=== PATIENT | male | born 1955 | race Caucasian/White ===

== ENCOUNTER 2020-02-15 04:47 | Inpatient (IN) | payer BC ==
[2020-02-08 11:41] LABS: HEMATOCRIT 43.4 % (42.0-52.0); MCH 31.5 pg (26.0-34.0); MCHC 32.2 g/dL (28.0-37.0); MCV 97.6 fL (80.0-100.0); RBC 4.45 mil/uL (4.50-6.00); RDW 15.4 % (10.5-14.5); WBC 11.4 thou/uL (4.0-11.0)
[2020-02-08 11:48] LABS: URINE BILIRUBIN NEGATIVE (Negative); URINE BLOOD 1+ (Negative); URINE CLARITY CLEAR; URINE COLOR YELLOW; URINE GLUCOSE-RANDOM* NEGATIVE (Negative); URINE KETONES NEGATIVE (Negative); URINE LEUKOCYTES-REFLEX NEGATIVE (Negative); URINE NITRITE-REFLEX NEGATIVE (Negative); URINE PROTEIN (DIPSTICK) 2+ (Negative); URINE SPECIFIC GRAVITY 1.015 (1.005-1.035); URINE UROBILINOGEN 0.2 E.U./dl (0.2-1.0)
[2020-02-08 11:54] LABS: PROTIME 10.2 Seconds (9.3-11.4)
[2020-02-08 11:56] LABS: ALBUMIN 3.7 g/dL (3.4-5.0); CALCIUM 9.3 mg/dL (8.5-10.1); CREATININE 5.4 mg/dL (0.7-1.3); POTASSIUM 4.9 mmol/L (3.5-5.1); TOTAL BILIRUBIN 0.3 mg/dL (0.2-1.0); TOTAL PROTEIN 7.4 g/dL (6.4-8.2)
[2020-02-08 12:09] LABS: SQUAMOUS 0-3 Few /LPF (0-3)
[2020-02-08 12:10] LABS: BACTERIA-REFLEX 1-9 Few /HPF (None Seen); CASTS None Seen /LPF (None Seen); CRYSTALS None Seen /LPF (None Seen); URINE RBC None Seen /HPF (0-2); URINE WBC-REFLEX None Seen /HPF (0-5)
[~2020-02-15] VITALS: Ht 175.3 cm; Wt 131.1 kg
--- NOTE | ~2020-02-15 | HC ---
[facility] [place] [address] CONSULTATION Name: DAWN URENA Room #: 446-P ADM IN M.R.#: [id number] Admission: 02/15/20 Attend Phys: Sawyer Mejia MD Discharge: Date of : 55 Report #: [id number] THIS REPORT FOR: cc: [facility] - Family physician unknown ALFON[place] - Family physician unknown Cullen Badillo MD ~ CC: Sawyer HAMILTON unknown Nicolasa Espinoza REASON FOR CONSULTATION: End-stage renal disease. REASON FOR PRESENTATION: Post-hip prosthesis. HISTORY OF PRESENT ILLNESS: A 64-year-old with past medical history of hypertension and hyperlipidemia, who was admitted for degenerative joint disease of the left hip and had a left total hip replacement. I was consulted to manage his end-stage renal disease. The patient had been maintained on peritoneal dialysis. He does not really know the underlying cause for his end-stage renal disease. 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 The patient had his surgery done successfully yesterday and I was consulted to manage his peritoneal dialysis related issues. He feels okay during his visit with me today. PAST MEDICAL HISTORY: 1. Hypertension. 2. Hyperlipidemia. 3. Degenerative joint disease of his left hip. 4. Hyperparathyroidism. 5. Anemia. MEDICATIONS: 1. ____. 2. Lisinopril. 3. Sensipar. 4. Atorvastatin. FAMILY HISTORY: Hypertension. ALLERGIES: None. SOCIAL HISTORY: He denies drug or alcohol abuse. He is retired. REVIEW OF SYSTEMS: GENERAL: No fever or chills. CARDIOVASCULAR: No chest pain or palpitation. PULMONARY: No cough or hemoptysis. GASTROINTESTINAL: No nausea or vomiting. [facility] [address] [place] [address] CONSULTATION Name: DAWN URENA Room #: 446-P ADM IN M.R.#: [id number] Admission: 02/15/20 Attend Phys: Sawyer Mejia MD Discharge: Date of : 55 Report #: [id number] GENITOURINARY: He still makes some urine. No frequency, no urgency. MUSCULOSKELETAL: As per the history of present illness. PHYSICAL EXAMINATION: GENERAL: He is alert, oriented, in no apparent distress. VITAL SIGNS: Blood pressure is 114/64. He is afebrile with a temperature of 36.8. Pulse rate is 83. HEAD AND NECK: No jugular venous distention, no bruit, no thyromegaly. CHEST: Clear to auscultation bilaterally. CARDIOVASCULAR: Regular with no rub detected. ABDOMEN: Soft, nontender, with intact PD catheter. LOWER EXTREMITIES: No edema. LABORATORY VALUES: Revealed white blood cell count of 14.8, hemoglobin 12.4. Chemistry from today revealed sodium of 136, potassium of 5.1, BUN 63, creatinine of 5.1. ASSESSMENT, IMPRESSION AND PLAN: 1. End-stage renal disease. 2. Status post left hip prosthesis. 3. Hypertension. 4. We will continue with the usual peritoneal dialysis regimen for the patient. Orders are entered. 5. Resume his end-stage renal disease related medications including his binders. 6. Continue with the current orthopedic, physical therapy care. By: [id number] Cullen Badillo MD /nt
[~2020-02-15 04:47] MED LIST: AURYXIA PO; LIPITOR10 MG PO; METOLAZONE 5 MG5 MG PO; NEPHRO-VITE RX1 TA1 PO; SENSIPAR 30 MG30 M1 PO; VITAMIN D31250 MCG PO; ZESTRIL40 MG PO
[2020-02-15 07:12] VITALS: BP 146/72
--- NOTE | 2020-02-15 07:56 | EKG ---
[facility] [place] [address] ELECTROCARDIOGRAM REPORT Name: DAWN URENA Room #: 150 ADM IN M.R.#: [id number] Admission: 02/15/20 Attend Phys: Sawyer Mejia MD Discharge: Date of : 55 Report #: [id number] THIS REPORT FOR: cc: FAM - Family physician unknown FAM - Family physician unknown Willie Obrien MD [facility] ~ THIS REPORT FOR: //name// [facility] Test Date: 2020-02-15 Test Time: 07:12:13 Pat Name: DAWN URENA Department: Room: 150 4 Gender: M Senior Financial Reporting Analyst: Joao WARREN : 1955 Requested By: Nicolasa Espinoza Order Number: [id number] MD: Willie Obrien Measurements Intervals [place] Rate: 79 P: 10 AR: 174 QRS: -12 QRSD: 89 T: 23 QT: 373 QTc: 428 Interpretive Statements Sinus rhythm No significant abnormality No previous ECG available for comparison Electronically Signed On 02-15-2020 7:55:57 CDT by Willie Obrien [email or web address] <ELECTRONICALLY SIGNED> By: Willie Obrien MD, FAC 02/15/20 0755 1 1 Willie Obrien MD, [facility] /EPI
[2020-02-15 11:00] VITALS: BP 102/53
[2020-02-15 11:30] VITALS: BP 107/55
--- NOTE | 2020-02-15 12:51 | NUR ---
PATIENT ADMITTED FROM OR WITH LFT HIP REPLACEMENT, CHELLY DRESSING, KNEE HIGH DUSTIN HOSE, SCD'S, ICE PACK TO LEFT HIP AREA. PATIENT ALERT AND ORIENTED X 4. PATIENT C/O PAIN 2/10 TO LEFT HIP AREA. ADMISSION DONE AND COMPLETED. PATIENT HAS LEFT HAND IV 1/2 NS AT 100CC/HR. PATIENT ARRIVED ON THE FLOOR AT 1100, WILL REPORT OFF TO CAITLIN/DONY.
[2020-02-15 15:00] VITALS: BP 133/85
--- NOTE | 2020-02-15 16:23 | NUR ---
ASSUMED CARE OF THE PT AT 0700. PT WORKED WITH PT TODAY AND WALKED TO THE HALLS. PAIN CONTROLLED BY PAIN MEDS, SEE EMAR. WILL TITRATE PT OFF NC. ICE PACK, CHELLY DRESSING, HEMOVAC, DUSTIN HOSE AND SCD'S IN PLACE. FALL PRECAUTIONS IN PLACE, BED IN THE LOWEST POSITION AND CALL LIGHT IS WITHIN REACH. WILL CONTINUE TO MONITOR THE PT.
--- NOTE | 2020-02-15 16:25 | NUR ---
PT ADMITTED RELATED TO LT TOTAL HIP REPLACEMENT. CM REVIEWED CHART AND SPOKE WITH CARE TEAM. CM MET WITH PT AT BEDSIDE THIS DAY. PT IS A&O X4. CM ROLE INTRODUCED. PT INDICATED HE LIVES IN AN APARTMENT WITH HIS SON WITH 1 STEP TO ENTER AND NO STEPS INSIDE. 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 PT INDICATED HE HAS NO DME, HH, OR OP HX. PT INDICATED HE PLANS TO RETURN HOME ONCE MEDCIALLY STABLE. CM TO CHECK TO SEE IF [facility] CAN PROVIDE PT'S FWW UPON DC. CM TO FOLLOW INDICATED WITH DC PLANNING.
[2020-02-15 19:45] VITALS: BP 132/83
[2020-02-16 04:50] VITALS: BP 79/50
--- NOTE | 2020-02-16 05:21 | NUR ---
RECIEVED CARE OF THIS PATIENT AT 1900. PATIENT ALERT AND ORIENTED X4. PATIENT DOING PERITONEAL DIALYSIS AT NIGHT. NO PROBLEMS WITH IT. PATIENT HAS HCELLY DRESSING ON L HIP, WITH A HEMAVAC. UP TO BSC. DENIES PAIN. SLEPT MOST OF NIGHT.
[2020-02-16 05:56] LABS: HEMATOCRIT 38.8 % (42.0-52.0); HEMOGLOBIN 12.4 gm/dL (14.0-18.0); MCH 31.5 pg (26.0-34.0); MCV 98.2 fL (80.0-100.0); PLATELET COUNT 230 thou/uL (150-400); RBC 3.95 mil/uL (4.50-6.00); RDW 15.2 % (10.5-14.5); WBC 14.8 thou/uL (4.0-11.0)
[2020-02-16 06:08] LABS: CALCIUM 9.1 mg/dL (8.5-10.1); CREATININE 5.1 mg/dL (0.7-1.3); POTASSIUM 5.1 mmol/L (3.5-5.1)
--- NOTE | 2020-02-16 07:47 | O ---
[facility] [place] [address] OPERATIVE REPORT Name: DAWN URENA Room #: 446-P ADM IN M.R.#: [id number] Admission: 02/15/20 Attend Phys: Sawyer Mejia MD Discharge: Date of : 55 Report #: [id number] THIS REPORT FOR: cc: [facility] - Family physician unknown FAM - Family physician unknown Sawyer Mejia MD ~ CC: Sawyer Mejia [facility] unknown Nicolasa Esipnoza DATE OF SERVICE: 02/15/2020 PREOPERATIVE DIAGNOSIS: End-stage degenerative arthritis, left hip. POSTOPERATIVE DIAGNOSIS: End-stage degenerative arthritis, left hip. PROCEDURE: Left total hip replacement. SURGEON: Sawyer Mejia MD INDICATIONS: This obese 64-year-old gentleman has severe chronic renal disease and has developed avascular necrosis and degenerative arthritis involving both hips. He has marked pain bilaterally and has difficulty maintaining ambulation and independence. We have elected to go ahead with left total hip replacement. He has been advised that it would be helpful to lose weight prior to this surgery, but he feels he simply cannot make progress in that regard. He understands he is at increased risk for perioperative problems including wound healing issues or phlebitis as a result of his obesity and his other comorbidity issues. He is on chronic peritoneal dialysis which also places him at some increased risk. DESCRIPTION OF PROCEDURE: The patient was taken to the operating room where he was placed under general anesthesia. Prophylactic intravenous antibiotics were administered. He was turned to the right lateral decubitus position. The left hip, thigh, and leg were meticulously prepped and draped. A slightly curving posterolateral skin incision was made and extended through subcutaneous tissues and fascia to expose the posterior aspect of the hip joint. Dissection was difficult given his very large size. Satisfactory exposure was established. The short external rotators and capsule were taken down and preserved and tagged with several #1 FiberWire sutures. The hip was dislocated posteriorly. Marked degenerative change on both the femoral head and acetabulum was noted. There was moderate deformity of the femoral head consistent with both DJD and AVN. A femoral neck osteotomy was performed. The Merrill and Nephew hip system was utilized. The femoral canal was opened sequentially with reamers and hand broaches. A size 14 broach seemed to fit most nicely. The neck and calcar was trimmed down to an appropriate level. The trial broach was removed and [address] [address] OPERATIVE REPORT Name: DAWN URENA Room #: 446-P [facility] IN M.R.#: [id number] Admission: 02/15/20 Attend Phys: Sawyer Mejia MD Discharge: Date of : 55 Report #: [id number] attention directed to the acetabulum. Satisfactory exposure was established, although with significant difficulty given his very large size. The acetabulum was sequentially reamed, gradually advancing to a 56 mm reamer. A 56 mm Merrill and Nephew StikTite 3-hole shell was then inserted. This was positioned in alignment with his true acetabulum, placing this at about 45 degrees off of vertical and about 20 degrees of anteversion. It was impacted into position and seemed to seat nicely and felt secure. In addition, 3 screws were placed through the apical fixation holes engaging good periacetabular bone adding to overall fixation. A 36 mm diameter polyethylene liner was then inserted, placing the 20-degree elevated castro at about the 10 o'clock posterior position. It also seated nicely and appeared to be secure. The Merrill and Nephew size 14 Synergy femoral stem with the high offset neck angle was selected. This was impacted into the canal, positioning this in about 15-20 degrees of anteversion. It seated nicely and appeared to be secure. A trial reduction was performed and the hip was best suited for a +4 mm neck length. This resulted in satisfactory leg length, alignment, range of motion, and stability. A permanent 36 mm stainless steel cobalt chrome head was selected and a 4 mm neck sleeve was selected. These were assembled and impacted on one of the Argueta tapers of the femoral stem. The hip was reduced. Alignment, range of motion, stability, and leg length were felt to be satisfactory. The entire wound was copiously irrigated. Good hemostasis was established. The short external rotators were repaired back to bone using the #1 FiberWire sutures passed through drill holes in the greater trochanter. This added nicely to overall hip stability. A single Hemovac was left in the wound exiting through a separate stab incision. The fascia was closed with multiple #1 Vicryl sutures. The subcutaneous tissues were closed with 0 Monocryl. The skin was closed with skin tam. A sterile dressing was applied. The patient was awakened and returned to recovery room in good condition. <ELECTRONICALLY SIGNED> By: Sawyer Mejia MD 02/16/20 0747 [id number] Sawyer Mejia MD /nt
[2020-02-16 08:02] VITALS: BP 114/64
[2020-02-16 09:14] LABS: ABSOLUTE NEUTROPHILS 10.4 thou/uL (1.4-8.2); PLATELET ESTIMATE NORMAL
--- NOTE | 2020-02-16 10:03 | NUR ---
PATIENT RESTING IN BED GAVE PRN PAIN MED WITH AM MEDS. DRAIN PULLED TO LEFT HIP SURGICAL SITE WITH MINIMAL DISCOMFORT TO PATIENT. PATIENT HAD PERITONEAL DIAYLSIS THIS AM V.S. 98.2 18 83 114/64. DIAYLSIS OUT 1350 ML. PT CONT OF B&B. PT TO WORK WITH THERAPY THIS AM
--- NOTE | 2020-02-16 14:57 | NUR ---
ON-GOING ASSESSMENT: PLANS ARE FOR PT TO LIKELY DISCHARGE HOME TOMORROW WITH A 4WW. CM SPOKE WITH [facility] WHO STATES THEY CHECKED INSURANCE AND CAN DELIVER ONE TO PATIENT TOMORROW MORNING THEY WILL JUST NEED A SCRIPT. CM NOTIFIED AND AWAITING RESPONSE.
[2020-02-16 15:54] VITALS: BP 106/66
[2020-02-16 20:01] VITALS: BP 102/69
[2020-02-17 06:18] LABS: HEMOGLOBIN 11.3 gm/dL (14.0-18.0); MCH 31.8 pg (26.0-34.0); MCHC 32.4 g/dL (28.0-37.0); MCV 98.2 fL (80.0-100.0); RBC 3.56 mil/uL (4.50-6.00); RDW 14.8 % (10.5-14.5)
--- NOTE | 2020-02-17 07:34 | NUR ---
ASSUMED CARE OF PATIENT HAS JOSUÉ TEDS AND SCD ON. PICCO DRESSING INTACT. PT STATES DID NOT SLEEP MUCH LAST NOC WILL TRY TO NAP TODAY BETWEEN THERAPY. STATES NO PAIN THIS AM. GAVE FRESH ICE WATER AND ICE BAG TO LEFT HIP. PT IS PLEASANT AND COOPERATIVE WITH CARE.
--- NOTE | 2020-02-17 07:34 | NUR ---
RECIEVED CARE OF THIS PATIENT AT 1900. PATIENT ALERT AND ORIENTED X4. DENIES PAIN. UP WITH ASSISTANCE.HAS CHELLY DRESSING THAT IS D/I ON R HIP. DUSTIN LAZARO AND SCD'S ON JOSUÉ LOWER EXT. ICE HAS BEEN APPLIED TO INCISION. SLEPT LITTLE THIS SHIFT. HAS PERITONEAL DIALYSIS GOING ALL NIGHT, NO PROBLEMS NOTED.
[2020-02-17 07:38] VITALS: BP 119/72
[2020-02-17 12:29] VITALS: BP 119/72
[2020-02-17] MEDS ORDERED: NORCO 10-325 T1 EACH PO (12:52)
[2020-02-17] MEDS ORDERED: ENOXAPARIN30 MG/0.1 SUBQ (12:55)
[2020-02-17 15:21] VITALS: BP 119/72
[2020-02-17 15:28] VITALS: BP 119/72
--- NOTE | 2020-02-17 15:49 | NUR ---
DISCHARGE PAPERS GONE OVER WITH PATIENT SIGNED AND COPY IN CHART. IV ACSESS DC. ORTHO PACKET GIVEN TO PATIENT . DUSTIN LAZARO XS 2 ON. PICCO DRESSING INTACT. ALL BELONGINGS PACKED AND SENT WITH PATIENT. LOVENOX RX CALLED TO [facility]. RX FOR PRN PAIN MED GIVEN TO PATIENT. ANABELLA DELIEVERED TO PATIENT.
--- NOTE | 2020-02-17 16:03 | NUR ---
CARE TEAM INDICATED THAT PT IS MEDICALLY STABLE TO DC HOME THIS DAY. PT INDICATED DESIRE FOR HH SERVICES UPON DC. REFERRAL SENT TO [facility]. PT ISSUED A FWW BY [facility]. PT'S SON TO TRANSPORT PT HOME THIS DAY. NO OTHER CM INTERVETNIION INDICATED. CASE CLOSED.
[2020-02-17 16:10] VITALS: BP 119/72
--- NOTE | 2020-02-17 16:11 | NUR ---
PATIENT LEFT AT THIS TIME IN W/C WITH BELONGINGS NO PAIN OR RESP DISTRESS.
--- NOTE | 2020-02-17 17:06 | NUR ---
FAXED REFERRAL TO [facility] HH SPOKE WITH [facility] IN ADM THEY ARE STILL CHECKING PT'S INSURANCE BUT MOST LIKELY WILL BE ABLE TO ACCEPT FAXED DC ORDERS/SUMMARY RECEIVED CONFIRMATION.
--- NOTE | 2020-02-18 18:03 | D ---
[facility] [place] [address] DISCHARGE SUMMARY Name: DAWN URENA Room #: 446-P [facility] IN M.R.#: [id number] Admission: 02/15/20 Attend Phys: Sawyer Mejia MD Discharge: 02/17/20 Date of : 55 Report #: [id number] THIS REPORT FOR: cc: FAM - Family physician unknown FAM - Family physician unknown Sawyer Mejia MD ~ THIS REPORT FOR: //name// CC: Sawyer Mejia [facility] unknown Nicolasa Espinoza DATE OF SERVICE: 02/17/2020 FINAL DIAGNOSES: End-stage degenerative arthritis, left hip; chronic renal failure with chronic dialysis, type 2 diabetes, hypertension, obesity. OPERATIONS AND PROCEDURES: Left total hip replacement. HISTORY OF PRESENT ILLNESS: This heavy, deconditioned 64-year-old gentleman presents with severe progressive bilateral hip pain, worse on the left than the right. He has elected to go ahead with left total hip replacement. We have discussed that he is certainly at significant risk given his obesity and other general medical problems. He is on chronic peritoneal dialysis, but seems to be stable in that regard. We have elected to go ahead with total hip replacement. HOSPITAL COURSE: The patient was admitted and taken to the operating room on 02/15/2020. He underwent left total hip replacement with some difficulty given his large size. Nevertheless, x-rays look good and the hip seemed stable and well positioned. Postoperatively, his course was largely unremarkable. He had only minor discomfort and rapidly advanced from IV analgesics to oral analgesics. He was able to resume regular diet. He advanced quickly to therapy using a walker with assistance for ambulation and full weightbearing. He had no other significant medical problems. He was placed on Lovenox low dose for prophylaxis and seemed to tolerate that well. He continues on his other routine medications. He seems ready and safe for discharge on 02/17/2020. He will be going home with family assistance. He is advised to continue gentle activity and use his walker for safety. He will continue with his renal diet and continue with daily nighttime peritoneal dialysis as he has been doing in the past. DISCHARGE MEDICATIONS: Include Lovenox 30 mg daily, hydrocodone 10 mg q. 6-8 hours p.r.n. for pain, lisinopril 40 mg daily, metolazone 5 mg daily, Sensipar 30 mg Saturday, Saturday, Saturday; atorvastatin 10 mg daily, folic acid once daily, multivitamin once daily. He will continue with his routine gentle exercise program and call me should there be any problems or questions. I will [address] [address] DISCHARGE SUMMARY Name: DAWN URENA Reymundo Room #: 446-P [facility] IN M.R.#: [id number] Admission: 02/15/20 Attend Phys: Sawyer Mejia MD Discharge: 02/17/20 Date of : 55 Report #: [id number] plan to see him back in my office in 1 week for routine followup. He will follow up with his primary care physician and retail product advisor with regard to any other general medical issues. <ELECTRONICALLY SIGNED> By: Sawyer Mejia MD 02/18/20 1803 1300 [id number] Sawyer Mejia MD /nt
== END 2020-02-17 16:13 | disposition home health service (06) | DRG 469 ==
LOC: PRE 04:47 → TBA 06:10 → PRE 09:08 → 4S 11:18 → PRE 13:27 → 4S 02-17 16:13
PROVIDERS: Nurse Practitioner; ADMIT Orthopaedic Surgery; ATTEND Orthopaedic Surgery
PROC: 0SRB0JZ Replacement of Left Hip Joint with Synthetic Substitute, Open Approach (ICD-10-PCS; principal; 2020-02-15)
PROC: 3E1M39Z Irrigation of Peritoneal Cavity using Dialysate, Percutaneous Approach (ICD-10-PCS; principal; 2020-02-15)
PROC: 3E1M39Z Irrigation of Peritoneal Cavity using Dialysate, Percutaneous Approach (ICD-10-PCS; 2020-02-16)
PROC: 3E1M39Z Irrigation of Peritoneal Cavity using Dialysate, Percutaneous Approach (ICD-10-PCS; 2020-02-17)
DX: M16.12 Unilateral primary osteoarthritis, left hip (principal); N18.6 End stage renal disease; Z68.41 Body mass index [BMI] 40.0-44.9, adult; I12.0 Hypertensive chronic kidney disease with stage 5 chronic kidney disease or end stage renal disease; E78.5 Hyperlipidemia, unspecified; E11.22 Type 2 diabetes mellitus with diabetic chronic kidney disease; E66.9 Obesity, unspecified; I25.10 Atherosclerotic heart disease of native coronary artery without angina pectoris; E87.5 Hyperkalemia; Z20.828 Contact with and (suspected) exposure to other viral communicable diseases; Z82.49 Family history of ischemic heart disease and other diseases of the circulatory system; Z87.891 Personal history of nicotine dependence; Z95.5 Presence of coronary angioplasty implant and graft; Z99.2 Dependence on renal dialysis
CPT/HCPCS: 10102; 33000; 50010; 50101; 50382; 50414; 51412; 53000; 53367; 56521; 56525; 56527; 56530; 57095; 57103; 62110; 62900; 65131; 70005

== ENCOUNTER → 2020-05-25 | Outpatient (CLI) | payer OTHER ==
[~2020-05-25] MED LIST changes: +CINACALCET HCL30 MG PO; +ENOXAPARIN30 MG/0.1 SUBQ; +NORCO 10-325 T1 EACH PO
== END ==
LOC: LAB 07:40
PROVIDERS: ATTEND Orthopaedic Surgery
DX: Z01.812 Encounter for preprocedural laboratory examination (principal); Z20.828 Contact with and (suspected) exposure to other viral communicable diseases

== ENCOUNTER 2020-05-30 06:06 | Inpatient (IN) | payer OTHER ==
[2020-05-25 08:53] LABS: HEMATOCRIT 44.5 % (42.0-52.0); HEMOGLOBIN 14.3 gm/dL (14.0-18.0); MCH 30.9 pg (26.0-34.0); MCHC 32.2 g/dL (28.0-37.0); MCV 95.9 fL (80.0-100.0); RBC 4.64 mil/uL (4.50-6.00); RDW 14.5 % (10.5-14.5); WBC 10.7 thou/uL (4.0-11.0)
[2020-05-25 08:55] LABS: URINE BILIRUBIN NEGATIVE (Negative); URINE BLOOD 1+ (Negative); URINE CLARITY CLEAR; URINE COLOR YELLOW; URINE GLUCOSE-RANDOM* NEGATIVE (Negative); URINE KETONES NEGATIVE (Negative); URINE LEUKOCYTES-REFLEX NEGATIVE (Negative); URINE NITRITE-REFLEX NEGATIVE (Negative); URINE PROTEIN (DIPSTICK) 2+ (Negative); URINE UROBILINOGEN 0.2 E.U./dl (0.2-1.0)
[2020-05-25 09:09] LABS: PROTIME 9.4 Seconds (9.3-11.4)
[2020-05-25 09:10] LABS: ALBUMIN 3.5 g/dL (3.4-5.0); CALCIUM 9.3 mg/dL (8.5-10.1); CREATININE 4.7 mg/dL (0.7-1.3); POTASSIUM 5.1 mmol/L (3.5-5.1); TOTAL BILIRUBIN 0.3 mg/dL (0.2-1.0); TOTAL PROTEIN 7.6 g/dL (6.4-8.2)
[2020-05-25 09:13] LABS: BACTERIA-REFLEX None Seen /HPF (None Seen); CASTS None Seen /LPF (None Seen); CRYSTALS None Seen /LPF (None Seen); SQUAMOUS >10 Many /LPF (0-3); URINE RBC 0-2 Rare /HPF (0-2); URINE WBC-REFLEX 0-5 Rare /HPF (0-5)
[~2020-05-30] VITALS: Ht 157.5 cm; Wt 124.3 kg
[2020-05-30 07:11] LABS: CREATININE 4.8 mg/dL (0.7-1.3); POTASSIUM 5.1 mmol/L (3.5-5.1)
[2020-05-30 07:17] LABS: ALBUMIN 3.2 g/dL (3.4-5.0); TOTAL BILIRUBIN 0.2 mg/dL (0.2-1.0); TOTAL PROTEIN 7.6 g/dL (6.4-8.2)
[2020-05-30 07:19] VITALS: BP 130/89
[2020-05-30 13:15] VITALS: BP 140/83
[2020-05-30 20:09] VITALS: BP 96/55
--- NOTE | 2020-05-30 20:47 | NUR ---
PATIENT ADMITTED FROM OR WITH LEFT HIP REPLACEMENT, CHELLY DRESSING, THIGH HIGH DUSTIN HOSE, AND SCD'S IN PLACE. PATIENT C/O PAIN AND NAUSEA, HYDROCODONE 1 TABLET GIVEN AND ZOFRAN 4MG IV GIVEN DURING ADMISSION. LEIF/PT ATTEMPTED TO WALK THE PATIENT, LEFT LEG BUCKLED DUE TO BLOCK GIVEN. PATIENT HAS LEFT WRIST IV IN PLACE, 1/2 NS STARTED. THIS RN HUNG IV ANTIBIOTIC. PATIENT HAS HEMOVAC IN PLACE EMPTIED 250CC. REPORT GIVEN TO KATYA/DONY.
--- NOTE | 2020-05-31 03:20 | NUR ---
PT CARE ASSUMED WITH PATIENT IN BED WATCHING TV AT 1915.PT IS ALERT AND ORIENTED X4.PT IS ON BEDREST AND TO WALK WITH PT TOMORROW.PT IS HAS AN ICE PACK,CHELLY DRESSING AND HEMOVAC.IV ACCESS ON LEFT WRIST.PT USES URINAL.PAIN MANAGED WITH HYDROCODONE.WILL CONTINUE TO MONITOR
[2020-05-31 03:58] VITALS: BP 123/58
[2020-05-31 05:17] LABS: HEMATOCRIT 37.7 % (42.0-52.0); MCH 31.1 pg (26.0-34.0); MCHC 31.9 g/dL (28.0-37.0); MCV 97.5 fL (80.0-100.0); RBC 3.87 mil/uL (4.50-6.00); RDW 14.8 % (10.5-14.5); WBC 14.5 thou/uL (4.0-11.0)
[2020-05-31 08:31] LABS: CHOLESTEROL 166 mg/dL (<200); HDL CHOLESTEROL 27 mg/dL (>40); LDL CHOLESTEROL 111 mg/dL (<100); TC:HDL 6.1 Ratio (Not establshd); TRIGLYCERIDE 144 mg/dL (<150); VLDL 29 mg/dL (<40)
--- NOTE | 2020-05-31 08:43 | NUR ---
ASSESSMENT: CM REVIEWED CHART AND SPOKE WITH PATIENT. PT IS ALERT AND ORIENTED X4. PT IS S/P TOTAL RIGHT HIP REPLACEMENT. PT REPORTS LIVING IN AN APT WITH HIS SON AND HAS ONE STEP TO ENTER. PT REPORTS HAVING A FWW AT HOME. PT STATES HE HAS A GRAB BAR IN THE SHOWER. 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 PT REPORTS THAT LAST TIME HE DID OUTPATIENT THERAPY AT [facility] AND PREFERS TO DO THAT AGAIN. PT REPORTS HE IS GOING TO LET ATTENDING KNOW. PATIENT IS TO WORK WITH THERAPY TODAY AND PLAN IS TO DO OUTPATIENT THERAPY AT [facility]. CM WILL CONTINUE TO FOLLOW TO ASSIST NEEDED.
[2020-05-31 10:14] LABS: CALCIUM 8.6 mg/dL (8.5-10.1); CREATININE 5.9 mg/dL (0.7-1.3)
[2020-05-31 10:43] VITALS: BP 84/48
--- NOTE | 2020-05-31 10:52 | NUR ---
DR PABLO NOTIFIED ABOUT B/P LOW 84/48, HE STATES HE WILL TAKE CARE OF THE LOW B/P. ELICEO/DONY NOTIFIED.
[2020-05-31 19:43] VITALS: BP 125/69
--- NOTE | 2020-06-01 02:26 | NUR ---
PT CARE ASSUMED WITH PT IN BED WATCHING TV.PT IS A/O X4.PT UP WITH PT/OT.PT HAD PERITONEAL DIALYSIS DONE AND STILL GOING WITH NO ISSUES OR CONCERNS.PT PAIN MANAGED WITH HYDROCODONE.PT HAS A CHELLY AND HEMOVAC.PT IS ON ROOM AIR .PT USES URINAL .WILL CONTINUE TO MONITOR
[2020-06-01 06:04] LABS: HEMATOCRIT 36.5 % (42.0-52.0); HEMOGLOBIN 11.7 gm/dL (14.0-18.0); MCH 31.2 pg (26.0-34.0); MCHC 32.2 g/dL (28.0-37.0); MCV 96.9 fL (80.0-100.0); RBC 3.77 mil/uL (4.50-6.00); RDW 14.8 % (10.5-14.5); WBC 12.7 thou/uL (4.0-11.0)
[2020-06-01 07:15] VITALS: BP 132/86
[2020-06-01 08:52] LABS: ALBUMIN 2.8 g/dL (3.4-5.0); CALCIUM 8.9 mg/dL (8.5-10.1); CREATININE 5.2 mg/dL (0.7-1.3); PHOSPHORUS 5.4 mg/dL (2.5-4.9); POTASSIUM 5.4 mmol/L (3.5-5.1)
[2020-06-01] MEDS ORDERED: PRINIVIL20 M1 PO (11:27)
--- NOTE | 2020-06-01 13:07 | O ---
[facility] [place] [address] OPERATIVE REPORT Name: DAWN URENA Room #: 442-P ADM IN M.R.#: [id number] Admission: 05/30/20 Attend Phys: Sawyer Mejia MD Discharge: Date of : 55 Report #: [id number] THIS REPORT FOR: cc: Aashish Velez MD,Aashish Mejia,Sawyer Cox MD ~ CC: Sawyer Velez DATE OF SERVICE: 05/30/2020 PREOPERATIVE DIAGNOSIS: End-stage degenerative arthritis, right hip. POSTOPERATIVE DIAGNOSIS: End-stage degenerative arthritis, right hip. PROCEDURE: Right total hip arthroplasty. SURGEON: Sawyer Mejia MD INDICATIONS: This obese 64-year-old gentleman has severe degenerative arthritis involving both hips. He underwent a left total hip replacement several months ago with excellent result. He returns now for right hip replacement. We have discussed that he is at some increased risk for perioperative problems given his obesity and also his chronic renal failure. He is currently on peritoneal dialysis chronically and seems to be stable and functioning well. DESCRIPTION OF PROCEDURE: The patient was taken to the operating room where he was placed under general anesthesia. Prophylactic intravenous antibiotics were administered. He was turned to the left lateral decubitus position. The right hip, thigh and leg were meticulously prepped and draped. A slightly curving posterolateral skin incision was made and carried through the adipose tissues and fascia exposing the posterior aspect of the hip joint. The short external rotators were taken down and preserved and tagged with several #1 sutures. The hip was then dislocated posteriorly. Marked degenerative change on both the femoral head and acetabulum was noted. A femoral neck osteotomy was performed. The canal was then prepared using reamers and hand broaches. The Merrill and Nephew hip system was utilized and a size 14 stem seemed to fit most appropriately. The trial stem was removed and the attention directed to the acetabulum. Exposure was established with some difficulty given his large size. The acetabulum was sequentially reamed, gradually advancing to a 56 mm diameter. The Merrill and Nephew 56 mm diameter, 3-hole StikTite shell was then selected. This was impacted into his acetabulum in anatomic alignment, which placed this in about 45 degrees off vertical and about 20 degrees of anteversion. It seated nicely and appeared to be secure. In addition, 3 cancellous screws were placed through the apical holes engaging good periacetabular bone adding to overall stability. A 40 mm inside diameter [address] [address] OPERATIVE REPORT Name: DAWN URENA Reymundo Room #: 442-P [facility] IN M.R.#: [id number] Admission: 05/30/20 Attend Phys: Sawyer Mejia MD Discharge: Date of : 55 Report #: [id number] polyethylene liner was then placed, positioning the 20-degree castro at about the 9 o'clock posterior position. It was snapped into place and seemed to seat nicely and appeared to be secure. The permanent Merrill and Nephew size 14 high offset femoral stem was then inserted. This was impacted into position, placing this in about 15 degrees of anteversion. It seated nicely and appeared to be secure. A 40 mm diameter cobalt chrome head with a +4 mm neck length was selected. This was impacted on the Argueta taper and seated nicely. The hip was reduced. Alignment, range of motion, stability and leg length were assessed and felt to be satisfactory. Good hemostasis was confirmed. The short external rotators and capsule were repaired back to bone using #1 [place] sutures, passed through small drill holes in the greater trochanter. This also added nicely to overall hip stability. A single Hemovac was left in the wound exiting through a separate stab incision. The fascia was then closed with multiple #1 Vicryl sutures. The adipose and subcutaneous tissues were closed with 0 Monocryl. The skin was closed with skin tam. A sterile dressing was applied. The patient was awakened and returned to recovery room in good condition. <ELECTRONICALLY SIGNED> By: Sawyer Mejia MD 06/01/20 1307 0935 [id number] Sawyer Mejia MD /nt
--- NOTE | 2020-06-01 13:26 | D ---
[facility] [place] [address] DISCHARGE SUMMARY Name: DAWN URENA Reymundo Room #: 442-P ADM IN M.R.#: [id number] Admission: 05/30/20 Attend Phys: Sawyer Mejia MD Discharge: Date of : 55 Report #: [id number] THIS REPORT FOR: cc: Aashish Velez MD,Aashish Mejia,Sawyer Cox MD ~ THIS REPORT FOR: //name// CC: Sawyer Velez DATE OF SERVICE: 06/01/2020 FINAL DIAGNOSIS: End-stage degenerative arthritis of right hip. OPERATION PROCEDURES: Right total hip replacement. HISTORY OF PRESENT ILLNESS: This 64-year-old gentleman has severe degenerative arthritis involving both hips. He underwent left total hip replacement several months ago and has done exceptionally well. He returned at this time for right total hip replacement. His other general medical conditions include chronic renal failure with chronic home peritoneal dialysis, which is functioning quite nicely. He seems otherwise stable and is functionally independent. HOSPITAL COURSE: The patient was admitted and taken to the operating room on 05/30/2020, he underwent right total hip replacement, which he tolerated nicely. Postoperatively, he made excellent progress, advancing to independent ambulation. He was able to advance to a regular diet and oral pain medication. He was maintained on his other routine medications. He seems safe and ready for discharge on 06/01. DISCHARGE MEDICATIONS: Include lisinopril 20 mg daily; metaxalone 5 mg daily; Sensipar 30 mg tablets Saturday, Saturday and Saturday; atorvastatin 10 mg daily; hydrocodone 10 mg q.6 hours as needed for pain; Lovenox 30 mg daily for 14 days. FOLLOWUP: He will follow up in my office in 1 week for routine followup and in 2 weeks for suture removal. <ELECTRONICALLY SIGNED> By: Sawyer Mejia MD 06/01/20 1326 [id number] Sawyer Mejia MD /nt
[2020-06-01 14:13] VITALS: BP 132/86
[2020-06-01 14:25] VITALS: BP 132/86
--- NOTE | 2020-06-01 14:55 | NUR ---
ON-GOING ASSESSMENT: CM REVIEWED CHART AND MET WITH PATIENT. PLANS ARE FOR PATIENT TO RETURN [facility] WITH HOME HEALTH TODAY. PT REPORTS HE HAS NO PREFERENCE OF HH AGENCY BUT THINKS HE HAS [facility] IN THE PAST AND IS AGREEABLE WITH REFERRAL THERE. CM FAXED RFERRAL. PT IS DISCHARGING HOME TODAY WITH HH AND SON IS GOING TO PICK HIM UP. CASE CLOSED.
--- NOTE | 2020-06-01 16:20 | NUR ---
Assumed care of pt. at 0700. Pt. was calm and cooperative. Pt. was happy to possibly discharge and did not complain of any pain until PT worked with him. Pt. received discharge teaching and signed off on discharge forms. Pt. requested home health care, provider aware, CM contacted and setup HH therapy for pt. Pt. discharged and left with all belongings and son.
== END 2020-06-01 16:50 | disposition home health service (06) | DRG 469 ==
LOC: TBA 06:06 → 4S 06:06 → PRE 08:01 → 4S 12:59 → PRE 15:17 → 4S 06-01 16:50
PROVIDERS: Anesthesiology; Internal Medicine Nephrology; ADMIT Orthopaedic Surgery; ATTEND Orthopaedic Surgery
PROC: 0SR902Z Replacement of Right Hip Joint with Metal on Polyethylene Synthetic Substitute, Open Approach (ICD-10-PCS; principal; 2020-05-30)
PROC: 3E1M39Z Irrigation of Peritoneal Cavity using Dialysate, Percutaneous Approach (ICD-10-PCS; 2020-05-31)
PROC: 3E1M39Z Irrigation of Peritoneal Cavity using Dialysate, Percutaneous Approach (ICD-10-PCS; 2020-06-01)
DX: M16.11 Unilateral primary osteoarthritis, right hip (principal); N18.6 End stage renal disease; Z68.43 Body mass index [BMI] 50.0-59.9, adult; I12.0 Hypertensive chronic kidney disease with stage 5 chronic kidney disease or end stage renal disease; E78.5 Hyperlipidemia, unspecified; E87.5 Hyperkalemia; I25.10 Atherosclerotic heart disease of native coronary artery without angina pectoris; I95.9 Hypotension, unspecified; E66.01 Morbid (severe) obesity due to excess calories; Z96.642 Presence of left artificial hip joint; Z99.2 Dependence on renal dialysis; Z87.891 Personal history of nicotine dependence; Z95.5 Presence of coronary angioplasty implant and graft; Z79.899 Other long term (current) drug therapy
CPT/HCPCS: 10102; 33000; 50010; 50101; 50382; 50414; 51412; 53000; 53367; 56521; 56525; 56530; 57095; 57103; 62110; 62900; 64039; 70005